=== PATIENT | male | born 1995 | race Caucasian/White ===

== ENCOUNTER 2017-08-19 15:24 | Emergency (ER) | payer SELFPAY, OTHER ==
[2017-08-19] MEDS: IBUPROFEN 600 MG TAB PO (16:50)
== END 2017-08-19 17:35 | disposition home or self-care (01) ==
LOC: FTE 15:24
DX: S99.912A Unspecified injury of left ankle, initial encounter (principal); X58.XXXA Exposure to other specified factors, initial encounter; Y92.89 Other specified places as the place of occurrence of the external cause
CPT/HCPCS: 73610; 99283-25